=== PATIENT | male | born 1950 ===

== ENCOUNTER 2017-02-26 09:34 | Emergency (ER) | payer BC ==
[2017-02-26 10:02] VITALS: BP 175/89
--- NOTE | 2017-02-26 10:29 | UC ---
Dizzy HPI HPI Summary: SUDDEN ONSET OF DIZZINESS/VERTIGO LAST NIGHT WHILE IN BED. WORSE WITH CHANGE IN POSITION AND RESOLVES WHEN HEAD IS STILL. HAS SOME ASSOCIATED NAUSEA. NO FEVER, CP, SOB. NO NEW HEARING LOSS OR TINNITIS. - History Of Current Complaint Chief Complaint: UCDizziness Stated Complaint: DIZZY Time Seen by Provider: 02/26/17 10:18 Hx Obtained From: Patient Onset/Duration: Sudden Onset, Lasting Hours, Still Present Timing: Constant Severity Initially: Moderate Severity Currently: Moderate Pain Intensity: 0 Pain Scale Used: 0-10 Numeric Character: Room Spinning, Lightheaded, Weak, Dizzy Aggravating Factor(s): Position Change Alleviating Factor(s): Rest Associated Signs And Symptoms: Positive: Nausea - Allergies/Home Medications Allergies/Adverse Reactions: Allergies Allergy/AdvReac Type Severity Reaction Status Date / Time Penicillin G Allergy Itching Verified 12/19/12 15:26 PMH/Surg Hx/FS Hx/Imm Hx Previously Healthy: Yes - PT DOES NOT SEE A DCOTOR - Surgical History Surgical History: Yes Surgery Procedure, Year, and Place: [facility] 2012 - Family History Known Family History: Positive: Hypertension - Social History Alcohol Use: Rare Substance Use Type: None Smoking Status (MU): Light Every Day Tobacco Smoker Type: Pipe Amount Used/How Often: 1 per day Review of Systems Constitutional: Negative Eyes: Negative Respiratory: Negative Cardiovascular: Negative Gastrointestinal: Negative Neurological: Other - DIZZY All Other Systems Reviewed And Are Negative: Yes Physical Exam Triage Information Reviewed: Yes Appearance: Well-Appearing, No Pain Distress, Well-Nourished Vital Signs: Initial Vital Signs Temp 98.1 F 02/26/17 09:59 Pulse 86 02/26/17 09:59 Resp 18 02/26/17 09:59 BP 175/89 02/26/17 09:59 Pulse Ox 98 02/26/17 09:59 Vital Signs Reviewed: Yes Eyes: Positive: Conjunctiva Clear ENT: Positive: Hearing grossly normal, Pharynx normal, TMs normal Neck: Positive: Supple, Nontender, No Lymphadenopathy Respiratory Exam: Normal Cardiovascular Exam: Normal Abdomen Description: Positive: Nontender, Soft Musculoskeletal: Positive: No Edema Neurological: Positive: Alert, Other: - POSITIVE ELIEZER-HALLPIKE Psychological: Positive: Normal Response To Family, Age Appropriate Behavior Skin: Negative: rashes Dizzy Course/Dx - Differential Dx/Diagnosis Provider Diagnoses: BPPV Discharge - Discharge Plan Condition: Stable Disposition: HOME Prescriptions: Meclizine HCl [Meclizine 25] 25 mg PO Q8H PRN #30 tab PRN Reason: Dizziness Ondansetron ODT TAB* [Zofran Odt TAB*] 4 mg PO Q6H PRN #20 tab.odt PRN Reason: Nausea/Vomiting Patient Education Materials: Benign Paroxysmal Positional Vertigo (ED) Referrals: No Primary Care Phys,NOPCP [Primary Care Provider] - Additional Instructions: Benign paroxysmal positional vertigo (BPPV) - sometimes called benign positional vertigo, positional vertigo, postural vertigo, or simply vertigo, is probably the most commonly recognized cause of vertigo. It is most commonly attributed to calcium debris within the posterior semicircular canal (inner ear) , known as canalithiasis. Classically, patients describe a brief spinning sensation brought on when turning in bed or tilting the head backward to look up. The dizziness is quite brief, usually seconds, but less commonly it can last minutes. It may be severe enough to halt activity for this duration. Patients may experience nausea but rarely vomit. Ear pain, hearing loss, and tinnitus are absent. The diagnosis of BPPV is suggested by its historical description and confirmed by Eliezer-Hallpike maneuver. The natural history of BPPV is one of repeated, brief vertiginous episodes that are predictably provoked. BPPV can be treated by canalith repositioning maneuvers. HANDOUTS PROVIDED FOR MODIFIED [place] AND [place]-BRUNILDA[place] MANUEVERS IF YOUR SYMPTOMS DO NOT IMPROVE EXPECTED OVER THE NEXT FEW DAYS FOLLOW-UP WITH ENT. [facility] [place] YADI HERNANDEZ AND [address] [phone] ENT IN [place] ([place] OFFICE HOURS ON TUESDAYS) DR. LUISA MAYFIELD Address: [address] [place] [address] (Tuesdays) Phone Jo[place]: Phone [place]: CALL THE NUMBER BELOW FOR ASSISTANCE IN ESTABLISHING WITH A PCP An additional resource available to assist in finding the appropriate physician for your health care needs is the [facility] ([facility]). You may contact them by calling [phone]. SCHEDULE A DERMATOLOGY APPT FOR FURTHER EVALUATION OF YOUR RASH. DERMATOLOGY IN [place] Dr. Odette Tyson. [phone] [place] [address] Juana Underwood D[facility]MATOLOGY [place] DR. CAMRYN MARCOS [phone]
[2017-02-26] MEDS ORDERED: Ondansetron ODT TAB* 4 MG PO ONE (10:36)
== END 2017-02-26 10:52 | disposition home or self-care (01) ==
LOC: UCEAST 09:34
DX: H81.10 Benign paroxysmal vertigo, unspecified ear (principal); F17.200 Nicotine dependence, unspecified, uncomplicated; Z88.0 Allergy status to penicillin
CPT/HCPCS: 93005; 99202; A9270-GY; G0463